=== PATIENT | female | born 1950 | race Caucasian/White ===

== ENCOUNTER 2024-08-09 10:57 | Emergency (ER) | payer MEDICARE, SELFPAY ==
[2024-08-09 11:04] VITALS: PULSE 91; O2SAT 98
--- NOTE | 2024-08-09 11:05 | EKG_ITS ---
[address] [address] Test Date: 2024-08-09 Pat Name: Meseret Flowers Department: Room: Gender: Female Human Resources Project Coordinator: JENARO : 1950 Requested By: Order Number: [id number] Reading MD: Bartolome Barton Measurements Intervals [place] Rate: 95 P: 78 AL: 158 QRS: 86 QRSD: 126 T: 55 QT: 390 QTc: 490 Interpretive Statements Normal sinus rhythm Right bundle branch block Electronically Signed On 08-13-2024 20:09:11 PDT by Bartolome Barton
[2024-08-09 11:10] VITALS: BP 132/76; PULSE 90; RESP 18; TEMP 36.6; O2SAT 98; BMI 22.4
--- NOTE | 2024-08-09 11:25 | DI.RAD.S_ITS ---
PROCEDURE: XR CHEST 1V INDICATIONS: chest pain TECHNIQUE: One view of the chest was acquired. COMPARISON: None. FINDINGS: Surgical changes and devices: None. Lungs and pleura: Lungs are clear. Bilateral emphysematous changes. No pleural effusions or pneumothorax. Mediastinum: Mediastinal contours appear normal. Heart size is normal. Bones and chest wall: No suspicious bony lesions. Overlying soft tissues appear unremarkable. IMPRESSION: No acute cardiopulmonary abnormality is seen. Approved by: Janusz Hannah M.D. on 08/09/2024 at 12:15
--- NOTE | 2024-08-09 11:26 | PC.NURSE ---
pt reports intermittent nausea and dizziness beginning approx four days ago with changes in vision that has since resolved, pt denies having had any chest discomfort, pain or significant cardiac history
[2024-08-09 11:30] VITALS: PULSE 76; O2SAT 97
[2024-08-09 11:31] VITALS: BP 139/74; PULSE 79; RESP 16; O2SAT 96
[2024-08-09 11:33] LABS: Add Manual Diff / Slide Review NO; Basophils Absolute Auto 100 /uL (0-100); Basophils Percent Auto 0.7 % (0-2); Eosinophils Absolute Auto 0 /uL (0-450); Eosinophils Percent Auto 0.6 % (2-4); Hematocrit 41.3 % (36-46); Hemoglobin 13.8 g/dL (12.0-16.0); Lymphocytes Absolute Auto 1000 /uL (1100-4500); Lymphocytes Percent Auto 13.7 % (25-40); Mean Corpuscular HGB Conc 33.5 % (30-36); Mean Corpuscular Volume 92.6 fL (80-100); Monocytes Absolute Auto 500 /uL (0-900); Neutrophils Absolute Auto 6000 /uL (1500-7000); Platelet Count 239 X10^3/uL (150-400); Prothrombin Time 11.3 SECONDS (9.4-12.5); Red Blood Cell Count 4.46 X10^6/uL (4.0-5.2); Red Cell Distribution Width 13.1 % (11.6-14.8); White Blood Cell Count 7.7 X10^3/uL (4.5-11.0)
[2024-08-09 11:35] LABS: PTT Partial Thromboplastin Tim 33 SECONDS (25.1-36.5)
[2024-08-09 11:36] LABS: Alanine Aminotransferase 22 IU/L (<35); Albumin 4.4 g/dL (3.5-5.0); Albumin Globulin Ratio 1.7 (1.0-2.8); Alkaline Phosphatase 77 U/L (38-126); Aspartate Aminotransferase 28 IU/L (14-36); BUN Creatinine Ratio 26.8 (6-22); Bilirubin Total 0.7 mg/dL (0.2-1.3); Blood Urea Nitrogen 19 mg/dL (7-17); Calcium 9.1 mg/dL (8.4-10.2); Carbon Dioxide 22 mmol/L (22-32); Chloride 104 mmol/L (98-107); Creatine Kinase 84 U/L (30-135); Estimated Glomerular Filt Rate > 60 mL/min (>60); Globulin 2.6 g/dL (1.7-4.1); Glucose 120 mg/dL (80-110); HEMOLYSIS < 15 (0-50); Lipase 108 U/L (23-300); Magnesium 1.7 mg/dL (1.6-2.3); Potassium 4.2 mmol/L (3.4-5.1); Sodium 136 mmol/L (137-145)
[2024-08-09 11:48] LABS: NT-proBNP (BNP-Adult 18+) 24 pg/mL (<450); Troponin I < 0.012 ng/mL (0.01-0.034)
--- NOTE | 2024-08-09 11:59 | ED_ITS ---
HPI - General Adult General Chief complaint: Hypertension Stated complaint: High blood pressure, tired , dizzy, Time Seen by Provider: 08/09/24 11:55 Source: patient and family Mode of arrival: Ambulatory History of Present Illness HPI narrative: Patient is 73-year-old healthy female presenting to day with variety of complaints. Reports that for the last 4-5 days she has just not felt quite right. Feeling a little bit lightheaded but has not passed out denies any chest pain or shortness of breath no palpitations. Took her blood pressure a couple times at the pharmacy she had a systolic in the 140s. She has had loss of appetite has been chilled this week needing an electric blanket sometimes gets sweaty. No painful frequent urination no abdominal pain no cough. Daughter at bedside reports that she has been quite stressed. She has not report any worsening symptoms today but called her primary care office who recommend she come to the ED for evaluation. She has no sore throat. Generally appears well she has not fallen. Related Data Home Medications Medication Instructions Recorded Confirmed No Known Home Medications 04/11/23 05/06/24 Allergies Allergy/AdvReac Type Severity Reaction Status Date / Time ciprofloxacin Allergy Intermediate Hives Verified 05/06/24 10:04 Patient History Medical History (Updated 08/09/24 @ 12:27 by April Hays DO) Wears glasses Wax in ear Measles (~1954) Surgical History (Updated 04/10/23 @ 20:19 by Charlotte Gilman) Anesthesia History of hand surgery (~2000) History of bunionectomy (~1972) Family History (Updated 04/10/23 @ 20:22 by Charlotte Gilman) Father History of emphysema Mother Blood disorder Brother Cancer Grandfather Circulation problem Grandfather Blood disorder Social History Smoking Status: Never smoker Tobacco: How many years used: 2 second hand exposure: No alcohol intake: former (socially, stopped at age 38) substance use type: does not use Smoking Status: Never smoker Exam Initial Vital Signs Initial Vital Signs: Vital Signs Pulse Rate 91 H 08/09/24 11:04 Pulse Oximetry 98 08/09/24 11:04 GENERAL: Alert pleasant well-appearing 73-year-old female and in no acute distress. HEENT: Head atraumatic,EOMI, pupils reactive, face symmetric, moist mucous membranes CARDIOVASCULAR: Regular rate and rhythm without murmurs, rubs or gallops. RESPIRATORY: Breath sounds equal bilaterally, no wheezes rales or rhonchi. ABDOMEN: Soft, nontender. Normoactive bowel sounds all 4 quadrants. No guarding or rebound. EXTREMITIES: Normal range of motion, no clubbing or edema. Neurovascularly intact NEUROLOGICAL: Alert and oriented x4.Normal gait and speech. Cranial nerves II through XII grossly intact. Good dvmexr-hl-noeg, good hpkz-[id number]-[id number], strength equal bilaterally, no dysarthria or aphasia, sensation in tact to soft touch bilaterally, no visual changes, no facial droop SKIN: Warm, dry, no laceration, no petechiae, no rashes or lesions. Course Orders Ordered: ED Orders 08/09/24 11:15 Complete Blood Count AUTO DIFF Stat Comprehensive Metabolic Panel Stat Lipase Stat Magnesium Stat NT-proBNP (BNP-Adult 18+) Stat PTT Partial Thromboplastin Nura Stat Prothrombin Time INR Stat Troponin & CK Cardiac Panel Stat 08/09/24 11:25 XR chest 1V Stat EKG-12 Lead Stat Vital Signs Vital signs: Vital Signs - 8 hr 08/09/24 11:04 08/09/24 11:10 08/09/24 11:30 Temperature 97.9 F Pulse Rate 91 H 90 76 Respiratory Rate 18 Blood Pressure 132/76 Pulse Oximetry 98 98 97 Oxygen Delivery Method Room Air 08/09/24 11:31 08/09/24 11:31 08/09/24 12:00 Temperature Pulse Rate 79 73 Respiratory Rate 16 20 Blood Pressure 139/74 Pulse Oximetry 96 97 Oxygen Delivery Method Medical Decision Making Lab Data 08/09/24 11:15 08/09/24 11:15 Labs: Lab Results 08/09/24 08/09/24 Range/Units 11:15 12:11 WBC 7.7 (4.5-11.0) X10^3/uL RBC 4.46 (4.0-5.2) X10^6/uL Hgb 13.8 (12.0-16.0) g/dL Hct 41.3 (36-46) % MCV 92.6 (80-100) fL MCH 31.0 (26-34) PG MCHC 33.5 (30-36) % RDW 13.1 (11.6-14.8) % Plt Count 239 (150-400) X10^3/uL Neut % (Auto) 78.0 H (50-75) % Lymph % (Auto) 13.7 L (25-40) % [place] % (Auto) 7.0 (3-14) % Eos % (Auto) 0.6 L (2-4) % Baso % (Auto) 0.7 (0-2) % Neut # (Auto) 6000 (1383-8030) /uL Lymph # (Auto) 1000 L (6914-7238) /uL [place] # (Auto) 500 (0-900) /uL Eos # (Auto) 0 (0-450) /uL Baso # (Auto) 100 (0-100) /uL PT 11.3 (9.4-12.5) SECONDS INR 1.0 (0.9-1.3) APTT 33 (25.1-36.5) SECONDS Sodium 136 L (137-145) mmol/L Potassium 4.2 (3.4-5.1) mmol/L Chloride 104 (98-107) mmol/L Carbon Dioxide 22 (22-32) mmol/L BUN 19 H (7-17) mg/dL Creatinine 0.71 (0.52-1.04) mg/dL Estimated GFR > 60 (>60) mL/min BUN/Creatinine Ratio 26.8 H (6-22) Glucose 120 H (80-110) mg/dL Calcium 9.1 (8.4-10.2) mg/dL Magnesium 1.7 (1.6-2.3) mg/dL Total Bilirubin 0.7 (0.2-1.3) mg/dL AST 28 (14-36) IU/L ALT 22 (<35) IU/L Alkaline Phosphatase 77 (38-126) U/L Total Creatine Kinase 84 (30-135) U/L Troponin I < 0.012 (0.01-0.034) ng/mL NT-Pro-B Natriuret Pep 24 (<450) pg/mL Total Protein 7.0 (6.3-8.2) g/dL Albumin 4.4 (3.5-5.0) g/dL Globulin 2.6 (1.7-4.1) g/dL Albumin/Globulin Ratio 1.7 (1.0-2.8) Lipase 108 (23-300) U/L Urine RBC Cancelled Urine WBC Cancelled Ur Squamous Epith Cells Cancelled Ur Transition Epith Cell Cancelled Ur Renal Epithelial Cell Cancelled Calcium Oxalate Crystal Cancelled Uric Acid Crystals Cancelled Triple Phos Crystals Cancelled Other Crystals Cancelled Amorphous Sediment Cancelled Urine Bacteria Cancelled Hyaline Casts Cancelled Granular Casts Cancelled RBC Casts Cancelled WBC Casts Cancelled Other Casts Cancelled Urine Mucus Cancelled Urine Trichomonas Cancelled Urine Yeast Cancelled Urine Sperm Cancelled Ur Culture Indicated? Cancelled Micro UA Comment Cancelled Vol Urine Centrifuged Cancelled Point of Care Testing Glucose POC 117 Urine Dip Bedside Urine Glucose Negative Bedside Urine Bilirubin - Negative Bedside Urine Ketone - Negative Urine Specific [place] 1.005 Bedside Urine Occult Blood - Negative Bedside Urine pH 6 Bedside Urine Protein - Negative Bedside Urine Urobilinogen - Negative Bedside Urine Nitrite - Negative Bedside Urine Leukocytes - Negative Esterase Point of care testing: Point of Care Testing Glucose POC 117 Urine Dip Bedside Urine Glucose Negative Bedside Urine Bilirubin - Negative Bedside Urine Ketone - Negative Urine Specific [place] 1.005 Bedside Urine Occult Blood - Negative Bedside Urine pH 6 Bedside Urine Protein - Negative Bedside Urine Urobilinogen - Negative Bedside Urine Nitrite - Negative Bedside Urine Leukocytes - Negative Esterase Imaging Data Chest x-ray: Radiologist's Impression: PROCEDURE: MR HEAD/BRAIN WO CON INDICATIONS: confusion TIA TECHNIQUE: Non-contrast axial T1 spin echo, axial T2 fast spin echo, sagittal and axial FLAIR, coronal T2 fast spin echo, axial gradient echo, axial diffusion and ADC through the brain. COMPARISON: None. FINDINGS: Image quality: Excellent. CSF spaces: Ventricles appear symmetric in size and shape. Basal cisterns are patent. No extra-axial fluid collections. Brain: No intracranial bleeds or mass effects. There is cerebral volume loss for age. There are minimal periventricular and deep white matter chronic small vessel ischemic changes. Brainstem appears normal. Diffusion-weighted images show no acute infarct. No chronic ischemic insults. Normal intravascular flow voids are present. Skull and face: Calvarial bone marrow is normal in signal. Orbits are normal. Sinuses: Bilateral mastoid effusions, greater on the left. Mucosal thickening is seen in the right sphenoid sinus and posterior ethmoid air cells. IMPRESSION: 1. No acute intracranial hemorrhage or recent infarct. 2. Mild chronic microvascular ischemic changes. 3. Bilateral mastoid effusions. Right sphenoid sinus disease. Approved by: Janusz Hannah M.D. on 08/09/2024 at 10:51 ECG Data Attestation: I personally reviewed and interpreted this ECG as follows: Prior ECG tracings: not available for review Interpretation: Normal sinus rhythm rate 95 OK interval 158 QRS [address] changes T-wave inversions MDM Narrative Medical decision making narrative: Patient is a 73-year-old female presenting today with variety of vague complaints. Reports he was feeling some dizziness lightheadedness has not passed out no chest pain. She is noted to have normal blood pressure and vitals here in the emergency department EKGs has been reviewed normal sinus rhythm without ischemia Chest x-ray no acute cardiopulmonary process Blood work has been reviewed without any significant abnormality. She was no leukocytosis anemia ABDIRIZAK negative troponin. Urinalysis is negative for infection. Patient has an appointment with her PCP next week and will follow-up. She ambulated to the restroom steady gait. She has no focal deficits. Low suspicion for any kind of CVA. Discharge Plan Departure Patient Disposition: Home Clinical Impression: Fatigue Instructions: DI for Fatigue Activity Restrictions/Additional Instructions: *You have been diagnosed with fatigue *What to do: At this time increase fluid and diet as tolerated please see your primary as scheduled *Continue to take medications as directed *Follow up with your primary care provider in 2-3 days or call [phone] *Return to ER if you should have increasing weakness chest pain palpitations or any new, worsening or concerning symptoms Prescriptions: No Action No Known Home Medications Referrals: Frieda Frank DO [Primary Care Provider] - Stand Alone Forms: Patient Portal/API/Survey
[2024-08-09 12:00] VITALS: PULSE 73; RESP 20; O2SAT 97
== END 2024-08-09 12:36 | disposition home or self-care (01) ==
PROVIDERS: Emergency Provider Emergency Medicine; PCP Family Medicine
DX: R53.83 Other fatigue (principal); R42 Dizziness and giddiness; R07.9 Chest pain, unspecified
CPT/HCPCS: 36415; 71045; 80053; 81003; 82550; 82962; 83690; 83735; 83880; 84484; 85025; 85610; 85730; 93005; 99284

== ENCOUNTER 2025-03-12 11:59 | Emergency (ER) | payer MEDICARE, SELFPAY ==
[2025-03-12] VITALS (7 sets, daily range): BP systolic 129–172; BP diastolic 68–83; PULSE 65–95; RESP 12–23; TEMP 36.7; O2SAT 97–99; BMI 20.5
--- NOTE | 2025-03-12 12:13 | DI.CT.S_ITS ---
PROCEDURE: CT HEAD/BRAIN WO CON INDICATIONS: lightheaded, dizzy, ears ringing x 2 weeks TECHNIQUE: Noncontrast 4.5 mm thick angled axial sections acquired from the foramen magnum to the vertex, with coronal and sagittal reformats. For radiation dose reduction, the following was used: automated exposure control, adjustment of mA and/or kV according to patient size. COMPARISON: [facility], CR, XR CHEST 1V, 03/12/2025, 12:36. FINDINGS: Image quality: Diagnostic. CSF spaces: Basal cisterns are patent. No extra-axial fluid collections. The ventricles are symmetric in size and shape. Brain: No intracranial bleeds or mass effect. There is cerebral volume loss, with resultant ventricular and sulcal prominence. There are periventricular and deep white matter chronic small vessel ischemic changes. There is intracranial internal carotid artery atherosclerosis. Skull and face: Calvarium and visualized facial bones appear intact, without suspicious lesions. Sinuses: Visualized sinuses and mastoids are clear. IMPRESSION: No imaging explanation is found for this patient's presenting symptoms. To the limits of this noncontrast study, no findings of intracranial masses or mass effect can be seen. Dictated by: Chance Holland M.D. on 03/12/2025 at 11:57 Approved by: Chance Holland M.D. on 03/12/2025 at 11:57
--- NOTE | 2025-03-12 12:14 | DI.RAD.S_ITS ---
PROCEDURE: XR CHEST 1V INDICATIONS: gen weakness TECHNIQUE: One view of the chest was acquired. COMPARISON: [facility], CT, CT HEAD/BRAIN WO CON, 03/12/2025, 12:24. [facility], CR, XR CHEST 1V, 08/09/2024, 11:21. FINDINGS: Surgical changes and devices: None. Lungs and pleura: Lungs are clear, yet hyperexpanded. No pleural effusions or pneumothorax. Mediastinum: Mediastinal contours appear normal. Heart size is normal. Bones and chest wall: No suspicious bony lesions. Overlying soft tissues appear unremarkable. IMPRESSION: Hyperexpanded lungs, without an acute cardiopulmonary process identified. No focal infiltrates are seen. Dictated by: Chance Holland M.D. on 03/12/2025 at 12:00 Approved by: Chance Holland M.D. on 03/12/2025 at 12:00
--- NOTE | 2025-03-12 12:16 | EKG_ITS ---
[address] [address] Test Date: 2025-03-12 Pat Name: Meseret Flowers Department: Room: Gender: Female Legal Analyst: ANDREA : 1950 Requested By: Order Number: [id number] Reading MD: Prasanth Woodard MD Measurements Intervals [place] Rate: 85 P: 66 ME: 158 QRS: 97 QRSD: 116 T: 49 QT: 420 QTc: 499 Interpretive Statements Normal sinus rhythm Right bundle branch block NO SIGNIFICANT CHANGE FROM PRIOR TRACING Electronically Signed On 03-12-2025 15:16:07 PST by Prasanth Woodard MD
--- NOTE | 2025-03-12 12:17 | ED_ITS ---
HPI - Weakness <Clara Lackey PA-C - Last Filed: 03/12/25 15:27> General Chief complaint: Weakness Stated complaint: Weakness, Light headed, Shaky 2 weeks Time Seen by Provider: 03/12/25 12:03 Source: patient Mode of arrival: Wheelchair History of Present Illness HPI Narrative: Ms. Flowers is a pleasant 74-year-old female with no reported past medical history, not on any medications who presents to the emergency department for sensation of lightheadedness, generalized weakness, ears ringing, shakiness x2 weeks, specifically since February 25. Patient reports having similar sensation back in July of this year and she came to the ER at that time. MR brain revealed bilateral mastoid effusions, otherwise she had no significant abnormalities. She follow up with the primary care doctor and symptoms resolved shortly after. They returned about 2 weeks ago, patient reports she drank very sweet ice tea when symptoms began. She has been eating a low carb/sugar and high protein diet and has cut caffeine out over the last 2 weeks. However her symptoms have been persistent. She occasionally has palpitations and chills. She denies chest pain, abdominal pain, nausea, vomiting, diarrhea, constipation, dysuria, back pain, flank pain, visual disturbance, room spinning sensation. No syncopal episodes or falls. She does also report bilateral cerumen impactions that she has used Debrox for. Related Data Previous Rx's ?Medication ?Instructions ?Recorded chlorhexidine gluconate 0.12 % 15 ml buccal DAILY #120 mL 03/12/25 mouthwash (Peridex) penicillin V potassium 500 mg 500 mg PO QID 7 days #28 tabs 03/12/25 tablet Allergies Allergy/AdvReac Type Severity Reaction Status Date / Time ciprofloxacin Allergy Intermediate Hives Verified 03/12/25 12:10 Review of Systems <Clara Lackey PA-C - Last Filed: 03/12/25 15:27> Review of Systems ROS Unobtainable: All systems reviewed & are unremarkable except as noted in HPI and below Patient History <Clara Lackey PA-C - Last Filed: 03/12/25 15:27> Medical History Wears glasses Wax in ear Measles (~1955) Surgical History Anesthesia History of hand surgery (~2000) History of bunionectomy (~1972) Family History Father History of emphysema Mother Blood disorder Brother Cancer Grandfather Circulation problem Grandfather Blood disorder Social History Tobacco: How many years used: 2 second hand exposure: No alcohol intake: former (socially, stopped at age 38) substance use type: does not use Exam <Clara Lackey PA-C - Last Filed: 03/12/25 15:27> Narrative Exam Narrative: GENERAL: 74 year old patient appears stated age. Well-developed patient, in no acute distress. HEAD: Atraumatic. Normocephalic. EYES: Pupils equal, round, reactive to light. Extraocular motions intact. No scleral icterus. No injection or drainage. ENT: Cerumen in bilateral canals. Nose without bleeding, purulent drainage. Throat without erythema, tonsillar hypertrophy or exudate. Airway patent. NECK: Trachea midline. Cervical ROM intact. CARDIOVASCULAR: Regular rate and rhythm. RESPIRATORY: ?Nonlabored respirations. ?Speaking in clear, full sentences. ?Clear to auscultation. Breath sounds equal bilaterally. No wheezes, rales, or rhonchi. ? GASTROINTESTINAL: Abdomen soft, non-tender, nondistended. EXTREMITIES: No LE edema. BACK: No CVA tenderness. NEURO: AOx3. ?Clear speech. ?No facial asymmetry. Moves all 4 extremities appropriately. SKIN: No rash or erythema of visible areas Initial Vital Signs Initial Vital Signs: Vital Signs Temperature 98.1 F 03/12/25 12:10 Pulse Rate 95 H 03/12/25 12:10 Respiratory Rate 17 03/12/25 12:10 Blood Pressure 172/78 H 03/12/25 12:10 Pulse Oximetry 98 03/12/25 12:10 Oxygen Delivery Method Room Air 03/12/25 12:10 <Batsheva Ramírez DO - Last Filed: 03/12/25 15:48> Initial Vital Signs Initial Vital Signs: Vital Signs Temperature 98.1 F 03/12/25 12:10 Pulse Rate 95 H 03/12/25 12:10 Respiratory Rate 17 03/12/25 12:10 Blood Pressure 172/78 H 03/12/25 12:10 Pulse Oximetry 98 03/12/25 12:10 Oxygen Delivery Method Room Air 03/12/25 12:10 Course <Clara Lackey PA-C - Last Filed: 03/12/25 15:27> Orders Ordered: ED Orders 03/12/25 12:13 CT head/brain wo con Stat 03/12/25 12:14 XR chest 1V Stat EKG-12 Lead Stat 03/12/25 12:20 A1C [Hemoglobin A1C% w Est Avg Glu] Stat Complete Blood Count AUTO DIFF Stat Comprehensive Metabolic Panel Stat Lipase Stat Magnesium Stat NT-proBNP (BNP-Adult 18+) Stat PTT Partial Thromboplastin Nura Stat Prothrombin Time INR Stat TSH [Thyroid Stimulating Hormone] Stat Troponin I Stat 03/12/25 14:10 Urine Microscopic Stat Discontinued Medications Sodium Chloride (Normal Saline 0.9%) 1,000 mls @ 1,000 mls/hr IV BOLUS ONE Stop: 03/12/25 13:12 Last Infusion: 03/12/25 14:43 Dose: Infused Documented By: Admin: 03/12/25 12:31 Dose: 1,000 mls/hr Documented By: ANDREA Vital Signs Vital signs: Vital Signs - 8 hr 03/12/25 12:10 03/12/25 12:46 03/12/25 13:00 Temperature 98.1 F Pulse Rate 95 H 80 Respiratory Rate 17 23 Blood Pressure 172/78 H 142/74 H Pulse Oximetry 98 97 Oxygen Delivery Method Room Air 03/12/25 13:00 03/12/25 13:30 03/12/25 13:30 Temperature Pulse Rate 75 77 Respiratory Rate 12 20 Blood Pressure 155/82 H Pulse Oximetry 98 97 Oxygen Delivery Method 03/12/25 14:00 03/12/25 14:00 03/12/25 14:10 Temperature Pulse Rate 68 Respiratory Rate 14 Blood Pressure 129/68 136/83 Pulse Oximetry 97 Oxygen Delivery Method 03/12/25 14:10 03/12/25 14:30 Temperature Pulse Rate 67 65 Respiratory Rate 12 14 Blood Pressure Pulse Oximetry 98 99 Oxygen Delivery Method <Batsheva Ramírez DO - Last Filed: 03/12/25 15:48> Orders Ordered: ED Orders 03/12/25 12:13 CT head/brain wo con Stat 03/12/25 12:14 XR chest 1V Stat EKG-12 Lead Stat 03/12/25 12:20 A1C [Hemoglobin A1C% w Est Avg Glu] Stat Complete Blood Count AUTO DIFF Stat Comprehensive Metabolic Panel Stat Lipase Stat Magnesium Stat NT-proBNP (BNP-Adult 18+) Stat PTT Partial Thromboplastin Nura Stat Prothrombin Time INR Stat TSH [Thyroid Stimulating Hormone] Stat Troponin I Stat 03/12/25 14:10 Urine Microscopic Stat Discontinued Medications Sodium Chloride (Normal Saline 0.9%) 1,000 mls @ 1,000 mls/hr IV BOLUS ONE Stop: 03/12/25 13:12 Last Infusion: 03/12/25 14:43 Dose: Infused Documented By: Admin: 03/12/25 12:31 Dose: 1,000 mls/hr Documented By: ANDREA Vital Signs Vital signs: Vital Signs - 8 hr 03/12/25 12:10 03/12/25 12:46 03/12/25 13:00 Temperature 98.1 F Pulse Rate 95 H 80 Respiratory Rate 17 23 Blood Pressure 172/78 H 142/74 H Pulse Oximetry 98 97 Oxygen Delivery Method Room Air 03/12/25 13:00 03/12/25 13:30 03/12/25 13:30 Temperature Pulse Rate 75 77 Respiratory Rate 12 20 Blood Pressure 155/82 H Pulse Oximetry 98 97 Oxygen Delivery Method 03/12/25 14:00 03/12/25 14:00 03/12/25 14:10 Temperature Pulse Rate 68 Respiratory Rate 14 Blood Pressure 129/68 136/83 Pulse Oximetry 97 Oxygen Delivery Method 03/12/25 14:10 03/12/25 14:30 Temperature Pulse Rate 67 65 Respiratory Rate 12 14 Blood Pressure Pulse Oximetry 98 99 Oxygen Delivery Method MDM - Weakness <Clara Lackey PA-C - Last Filed: 03/12/25 15:27> Medical Records Attestation: I reviewed the patient's medical records. Medical records narrative: Reviewed ER visit 08/09/2024. Reviewed PCP visit 08/15/2024. Lab Data 03/12/25 12:20 03/12/25 12:20 Labs: Lab Results 03/12/25 03/12/25 Range/Units 12:20 14:10 WBC 8.8 (4.5-11.0) X10^3/uL RBC 4.62 (4.0-5.2) X10^6/uL Hgb 14.8 (12.0-16.0) g/dL Hct 43.0 (36-46) % MCV 92.9 (80-100) fL MCH 32.0 (26-34) PG MCHC 34.4 (30-36) % RDW 13.5 (11.6-14.8) % Plt Count 260 (150-400) X10^3/uL Neut % (Auto) 77.9 H (50-75) % Lymph % (Auto) 15.8 L (25-40) % [place] % (Auto) 5.2 (3-14) % Eos % (Auto) 0.5 L (2-4) % Baso % (Auto) 0.6 (0-2) % Neut # (Auto) 6900 (5315-3141) /uL Lymph # (Auto) 1400 (8728-6824) /uL [place] # (Auto) 500 (0-900) /uL Eos # (Auto) 0 (0-450) /uL Baso # (Auto) 100 (0-100) /uL PT 11.0 (9.4-12.5) SECONDS INR 1.0 (0.9-1.3) APTT 30 (25.1-36.5) SECONDS Sodium 138 (137-145) mmol/L Potassium 3.9 (3.4-5.1) mmol/L Chloride 103 (98-107) mmol/L Carbon Dioxide 22 (22-32) mmol/L BUN 22 H (7-17) mg/dL Creatinine 0.73 (0.52-1.04) mg/dL Estimated GFR > 60 (>60) mL/min BUN/Creatinine Ratio 30.1 H (6-22) Glucose 105 H (70-99) mg/dL Hemoglobin A1c 5.6 (4.0-6.0) % Calcium 9.6 (8.4-10.2) mg/dL Magnesium 1.7 (1.6-2.3) mg/dL Total Bilirubin 0.7 (0.2-1.3) mg/dL AST 27 (14-36) IU/L ALT 26 (<35) IU/L Alkaline Phosphatase 88 (38-126) U/L Troponin I < 0.012 (0.01-0.034) ng/mL NT-Pro-B Natriuret Pep 42 (<450) pg/mL Total Protein 7.8 (6.3-8.2) g/dL Albumin 4.8 (3.5-5.0) g/dL Globulin 3.0 (1.7-4.1) g/dL Albumin/Globulin Ratio 1.6 (1.0-2.8) Lipase 102 (23-300) U/L TSH 2.65 (0.47-4.68) uIU/mL Urine RBC 0-1/hpf (0-5/HPF) Urine WBC 0-1/hpf (0-5/HPF) Ur Squamous Epith Cells 0-1 /hpf (0-5/HPF) Urine Bacteria None seen (None) Ur Culture Indicated? Cult not indicated Vol Urine Centrifuged 10ml (spun) Urine Dip Bedside Urine Glucose Negative Bedside Urine Bilirubin - Negative Bedside Urine Ketone +/- 5 Urine Specific [place] 1.015 Bedside Urine Occult Blood +/- Bedside Urine pH 6.0 Bedside Urine Protein - Negative Bedside Urine Urobilinogen - Negative Bedside Urine Nitrite - Negative Bedside Urine Leukocytes +/- [address] scan - head: Radiologist Impression: PROCEDURE: CT HEAD/BRAIN WO CON INDICATIONS: lightheaded, dizzy, ears ringing x 2 weeks TECHNIQUE: Noncontrast 4.5 mm thick angled axial sections acquired from the foramen magnum to the vertex, with coronal and sagittal reformats. For radiation dose reduction, the following was used: automated exposure control, adjustment of mA and/or kV according to patient size. COMPARISON: [facility], CR, XR CHEST 1V, 03/12/2025, 12:36. FINDINGS: Image quality: Diagnostic. CSF spaces: Basal cisterns are patent. No extra-axial fluid collections. The ventricles are symmetric in size and shape. Brain: No intracranial bleeds or mass effect. There is cerebral volume loss, with resultant ventricular and sulcal prominence. There are periventricular and deep white matter chronic small vessel ischemic changes. There is intracranial internal carotid artery atherosclerosis. Skull and face: Calvarium and visualized facial bones appear intact, without suspicious lesions. Sinuses: Visualized sinuses and mastoids are clear. IMPRESSION: No imaging explanation is found for this patient's presenting symptoms. To the limits of this noncontrast study, no findings of intracranial masses or mass effect can be seen. Dictated by: Chance Holland M.D. on 03/12/2025 at 11:57 Approved by: Chance Holland M.D. on 03/12/2025 at 11:57 Chest x-ray: Radiologist Impression: PROCEDURE: XR CHEST 1V INDICATIONS: gen weakness TECHNIQUE: One view of the chest was acquired. COMPARISON: [facility], CT, CT HEAD/BRAIN WO CON, 03/12/2025, 12:24. [facility], CR, XR CHEST 1V, 08/09/2024, 11:21. FINDINGS: Surgical changes and devices: None. Lungs and pleura: Lungs are clear, yet hyperexpanded. No pleural effusions or pneumothorax. Mediastinum: Mediastinal contours appear normal. Heart size is normal. Bones and chest wall: No suspicious bony lesions. Overlying soft tissues appear unremarkable. IMPRESSION: Hyperexpanded lungs, without an acute cardiopulmonary process identified. No focal infiltrates are seen. Dictated by: Chance Holland M.D. on 03/12/2025 at 12:00 Approved by: Chance Holland M.D. on 03/12/2025 at 12:00 ECG Data Interpretation: ECG reveals normal sinus rhythm with a right bundle branch block, rate of 85 beats per minute, QTC of 499, similar to EKG on 08/09/2024. [facility] Narrative Medical decision making narrative: 74-year-old female with no reported past medical history, not on any medications who presents to the emergency department for sensation of lightheadedness, generalized weakness, ears ringing, shakiness x2 weeks, specifically since February 25. Differential diagnosis includes but is not limited to elevated blood pressure, electrolyte abnormality, cerumen impactions, vertigo, dehydration, hyperglycemia, hypoglycemia, UTI, gastritis, mastoid effusions, etc. On exam patient is in no acute distress, nontoxic appearing, vital signs reveal elevated blood pressure and heart rate in triage. She has cerumen in bilateral ear canals with slight evaluation of TMs which are pearly swan. No focal deficits. She ambulated here. Reporting multiple vague symptoms, we will obtain lab work, EKG, troponin, CT head, chest x-ray. Discussed case with the attending physician. Labs reveal normal WBC count 8.8, hemoglobin 14.8 hematocrit 43.0. Sodium 138 potassium 3.9 BUN 22 creatinine 0.73. Negative/undetectable troponin, negative BNP, normal lipase, TSH, LFTs. CXR reveals hyperexpanded lungs without acute cardiopulmonary process. CT head reveals no imaging explanation is found for the patient's presenting symptoms. No intracranial mass or mass effect. UA without signs of infection. Patient feeling better after IV fluids, blood pressure has normalized. Discussed all results with the patient recommended follow up with PCP for further evaluation. She did have me evaluate her left upper dentition which revealed some gingival erythema and tenderness, therefore we will treat with penicillin VK and Peridex. She is following up with her dentist for procedure in May. Discussed strict ER return precautions. Patient verbalized understanding of all information agreeable with the plan. She is ambulatory and stable for discharge home. <Batsheva Ramírez, DO - Last Filed: 03/12/25 15:48> Lab Data Labs: Lab Results 03/12/25 03/12/25 Range/Units 12:20 14:10 WBC 8.8 (4.5-11.0) X10^3/uL RBC 4.62 (4.0-5.2) X10^6/uL Hgb 14.8 (12.0-16.0) g/dL Hct 43.0 (36-46) % MCV 92.9 (80-100) fL MCH 32.0 (26-34) PG MCHC 34.4 (30-36) % RDW 13.5 (11.6-14.8) % Plt Count 260 (150-400) X10^3/uL Neut % (Auto) 77.9 H (50-75) % Lymph % (Auto) 15.8 L (25-40) % [place] % (Auto) 5.2 (3-14) % Eos % (Auto) 0.5 L (2-4) % Baso % (Auto) 0.6 (0-2) % Neut # (Auto) 6900 (8882-9333) /uL Lymph # (Auto) 1400 (8792-1767) /uL [place] # (Auto) 500 (0-900) /uL Eos # (Auto) 0 (0-450) /uL Baso # (Auto) 100 (0-100) /uL PT 11.0 (9.4-12.5) SECONDS INR 1.0 (0.9-1.3) APTT 30 (25.1-36.5) SECONDS Sodium 138 (137-145) mmol/L Potassium 3.9 (3.4-5.1) mmol/L Chloride 103 (98-107) mmol/L Carbon Dioxide 22 (22-32) mmol/L BUN 22 H (7-17) mg/dL Creatinine 0.73 (0.52-1.04) mg/dL Estimated GFR > 60 (>60) mL/min BUN/Creatinine Ratio 30.1 H (6-22) Glucose 105 H (70-99) mg/dL Hemoglobin A1c 5.6 (4.0-6.0) % Calcium 9.6 (8.4-10.2) mg/dL Magnesium 1.7 (1.6-2.3) mg/dL Total Bilirubin 0.7 (0.2-1.3) mg/dL AST 27 (14-36) IU/L ALT 26 (<35) IU/L Alkaline Phosphatase 88 (38-126) U/L Troponin I < 0.012 (0.01-0.034) ng/mL NT-Pro-B Natriuret Pep 42 (<450) pg/mL Total Protein 7.8 (6.3-8.2) g/dL Albumin 4.8 (3.5-5.0) g/dL Globulin 3.0 (1.7-4.1) g/dL Albumin/Globulin Ratio 1.6 (1.0-2.8) Lipase 102 (23-300) U/L TSH 2.65 (0.47-4.68) uIU/mL Urine RBC 0-1/hpf (0-5/HPF) Urine WBC 0-1/hpf (0-5/HPF) Ur Squamous Epith Cells 0-1 /hpf (0-5/HPF) Urine Bacteria None seen (None) Ur Culture Indicated? Cult not indicated Vol Urine Centrifuged 10ml (spun) Urine Dip Bedside Urine Glucose Negative Bedside Urine Bilirubin - Negative Bedside Urine Ketone +/- 5 Urine Specific [place] 1.015 Bedside Urine Occult Blood +/- Bedside Urine pH 6.0 Bedside Urine Protein - Negative Bedside Urine Urobilinogen - Negative Bedside Urine Nitrite - Negative Bedside Urine Leukocytes +/- 15 Esterase Discharge Plan Departure Patient Disposition: Home Clinical Impression: Light-headedness, Pain, dental Instructions: DI for Dehydration -- Adult, DI for Dental Pain Activity Restrictions/Additional Instructions: Dear Ms. Flowers, Thank you for coming to the emergency department. Today you were evaluated for multiple symptoms. We completed a large workup including blood work, CT scan of your head, chest x-ray. Your hemoglobin A1c which checks for diabetes was normal today at 5.6%. I have prescribed you antibiotics for a left upper dental infection in addition to a mouthwash. You were slightly dehydrated and received IV fluids. Please continue to rest, hydrate, eat a healthy balanced diet, follow up with the primary care doctor soon as possible and return to the ER if you develop any new or worsening symptoms. Please follow up with your primary care doctor within the next 2-3 days for ER follow-up. (If you do not have a PCP you can call [phone]. ?to schedule an appointment with an [facility] Primary Care Provider) IF YOU DEVELOP ANY NEW OR WORSENING SYMPTOMS, RETURN TO THE ER! Please read the attached instructions, they highlight more specific treatments and interventions for you at home. Thank you for letting me participate in your care, Clara Lackey PA-C Prescriptions: New penicillin V potassium 500 mg tablet 500 mg PO QID 7 Days Qty: 28 0RF chlorhexidine gluconate [Peridex] 0.12 % mouthwash 15 ml buccal DAILY Qty: 120 0RF Referrals: Frieda Frank DO [Primary Care Provider, Medical] Stand Alone Forms: Patient Portal/API ED Sign-out <Batsheva Ramírez DO - Last Filed: 03/12/25 15:48> Cosign ED Attending Britany Attestation: I was immediately available in the department for consultation.
[2025-03-12 12:30] LABS: Add Manual Diff / Slide Review NO; Hematocrit 43.0 % (36-46); Hemoglobin 14.8 g/dL (12.0-16.0); Lymphocytes Absolute Auto 1400 /uL (1100-4500); Mean Corpuscular HGB Conc 34.4 % (30-36); Mean Corpuscular Hemoglobin 32.0 PG (26-34); Mean Corpuscular Volume 92.9 fL (80-100); Platelet Count 260 X10^3/uL (150-400)
[2025-03-12] MEDS: SODIUM CHLORIDE 0.9% 1,000 ML 1000 ML IV (12:31)
[2025-03-12 12:35] LABS: INR 1.0 (0.9-1.3); Prothrombin Time 11.0 SECONDS (9.4-12.5)
[2025-03-12 12:38] LABS: PTT Partial Thromboplastin Tim 30 SECONDS (25.1-36.5)
[2025-03-12 12:40] LABS: Hemoglobin A1C% w Est Avg Glu 5.6 % (4.0-6.0)
[2025-03-12 12:41] LABS: Alanine Aminotransferase 26 IU/L (<35); Albumin 4.8 g/dL (3.5-5.0); Albumin Globulin Ratio 1.6 (1.0-2.8); Alkaline Phosphatase 88 U/L (38-126); Blood Urea Nitrogen 22 mg/dL (7-17); Calcium 9.6 mg/dL (8.4-10.2); Carbon Dioxide 22 mmol/L (22-32); Chloride 103 mmol/L (98-107); Estimated Glomerular Filt Rate > 60 mL/min (>60); Globulin 3.0 g/dL (1.7-4.1); Glucose 105 mg/dL (70-99); HEMOLYSIS < 15 (0-50); Lipase 102 U/L (23-300); Magnesium 1.7 mg/dL (1.6-2.3); Potassium 3.9 mmol/L (3.4-5.1); Sodium 138 mmol/L (137-145); Total Protein 7.8 g/dL (6.3-8.2)
--- NOTE | 2025-03-12 12:44 | PC.NURSE ---
Patient reports generalized weakness and loss of appetite.
[2025-03-12 12:53] LABS: NT-proBNP (BNP-Adult 18+) 42 pg/mL (<450); Troponin I < 0.012 ng/mL (0.01-0.034)
[2025-03-12 13:18] LABS: Thyroid Stimulating Hormone 2.65 uIU/mL (0.47-4.68)
[2025-03-12 14:35] LABS: Culture Indicated Urine Cult Not Indicated
== END 2025-03-12 14:56 | disposition home or self-care (01) ==
PROVIDERS: Emergency Provider Physician Assistant; PCP Family Medicine
DX: R42 Dizziness and giddiness (principal); K08.89 Other specified disorders of teeth and supporting structures
CPT/HCPCS: 36415; 70450; 71045; 80053; 81003; 81015; 83036; 83690; 83735; 83880; 84443; 84484; 85025; 85610; 85730; 93005; 96360; 96361; 99284; J7030